=== PATIENT | female | born 1950 | race Caucasian/White ===

== ENCOUNTER → 2017-06-22 | Outpatient (CLI) | payer BC ==
[~2017-06-22] MED LIST: ADVIN25/60 INH; ALBUAER19 INH; FLUO10CA48 PO; IBUP600T44 PO; OMEP20CA9 PO; OXYC-57 PO; PRED10TA PO; [UNRECOGNIZED DRUG - OTHER] PO
--- NOTE | 2017-06-26 12:39 | MAMMOGRAPHY REPORT ---
BILATERAL DIGITAL SCREENING MAMMOGRAM TOMOSYNTHESIS WITH CAD: 06/22/2017 CLINICAL HISTORY: Routine screening. Patient has no complaints. TECHNIQUE: Breast tomosynthesis in addition to standard 2D mammography was performed. Current study was also evaluated with a Computer Aided Detection (CAD) system. COMPARISON: Comparison is made to exams dated: 06/14/2016 mammogram, 06/09/2015 mammogram, 06/08/2014 m ammogram, 06/05/2013 mammogram, 06/03/2012 mammogram, and 05/10/2011 mammogram - [facility] enter. BREAST COMPOSITION: There are scattered areas of fibroglandular density in both breasts. FINDINGS: No suspicious masses, calcifications, or areas of architectural distortion are noted in ei ther breast. There has been no significant interval change compared to prior exams. IMPRESSION: ACR BI-RADS CATEGORY 1: NEGATIVE There is no mammographic evidence of malignancy. A 1 year screening mammogram is recommended. The pa tient will receive written notification of the results. Approximately 10% of breast cancers are not detected with mammography. A negative mammographic report should not delay biopsy if a clinically suggestive mass is present. Izabela Vargas M.D. ah/:06/22/2017 16:48:59 Lead Investigator: Magaly LEONARD(Emile)(Cande)(BD), [facility] letter sent: Normal 1/2 BI-RADS Code: ACR BI-RADS Category 1: Negative
== END | disposition home or self-care (01) ==
LOC: C.MAMM 16:20
PROVIDERS: ATTEND Obstetrics & Gynecology
DX: Z12.31 Encounter for screening mammogram for malignant neoplasm of breast (principal)

== ENCOUNTER 2017-09-06 11:02 | Emergency (ER) | payer BC ==
[~2017-09-06] VITALS: Ht 162.6 cm; Wt 72.0 kg
[2017-09-06 11:07] VITALS: TEMP 36.7
[2017-09-06 11:33] VITALS: O2SAT 97
[2017-09-06] MEDS ORDERED: MECLIZINE HCL 25 MG TAB PO STA (11:55)
[2017-09-06 11:57] VITALS: Ht 162.6 cm; Wt 72.0 kg
[2017-09-06 12:04] LABS: BASO % 0.4 %; BASO ABS # 0.03 K/uL (0-0.2); COMPLETE YES; EOS % 2.5 %; HEMATOCRIT 39.3 % (37-47); IG% 0.1 %; LYMPH % 36.9 %; LYMPH ABS # 2.63 K/uL (1.2-3.4); MEAN CELL VOLUME 91.6 fL (80-100); MEAN CORPUSCULAR HEMOGLOBIN 30.1 pg (25-34); MEAN CORPUSCULAR HGB CONC 32.8 g/dl (32-36); MEAN PLATELET VOLUME 11.7 fL (7.4-10.4); NEUT % 53.1 %; PLATELET COUNT 285 K/uL (130-400); RED BLOOD COUNT 4.29 M/uL (4.2-5.4); WHITE BLOOD COUNT 7.12 K/uL (4.8-10.8)
--- NOTE | 2017-09-06 12:06 | EMERGENCY ROOM VISIT NOTE ---
History Report prepared by Richard: Donovan Bravo Under the Supervision of: Dr. Prashanth Spears D.O. First contact with patient: 11:48 Chief Complaint: HYPERTENSION Stated Complaint: SHELL, HIGH BLOOD PRESSURE History of Present Illness The patient is a 66 year old female who presents to the Emergency Room with complaints of dizziness that began this morning. She notes that yesterday, she felt completely at her baseline. She has been experiencing sinus congestion and post nasal drip for about a week with some laryngitis and a headache as well. She denies any ear pain or pressure. She began having ringing in her ears upon arrival to the ER. She denies any chest pain, shortness of breath, nausea, vomiting, or abdominal pain. She has not taken any medications since 7 days ago which was Mucinex. This spell of dizziness has never happened to the patient before. She denies any history of hypertension, hyperlipidemia, diabetes, or strokes. She is currently on Omeprazole and Zoloft. She has a current history of a hiatal hernia. Source of History: patient Onset: this morning Position: other (Global) Symptom Intensity: moderate Quality: other (Dizziness) Timing: constant Associated Symptoms: + headache, No chest pain, No SOB, No nausea, No vomiting, No abdominal pain Note: She is experiencing sinus congestion and post nasal drip. Review of Systems See HPI for pertinent positives & negatives. A total of 10 systems reviewed and were otherwise negative. Past Medical & Surgical Medical Problems: (1) GERD (gastroesophageal reflux disease) Family History Omitted secondary to the patient's age. Social History Smoking Status: Former Smoker Smokeless Tobacco Use: No Alcohol Use: occasionally Drug Use: none Marital Status: Housing Status: lives with family Occupation Status: employed Current/Historical Medications Scheduled Omeprazole (Prilosec), 20 MG PO DAILY Sertraline (Zoloft), 1 TAB PO DAILY Allergies Coded Allergies: Tyramine (Verified Allergy, Unknown, HIVES, 05/08/16) Physical Exam Vital Signs Date Time Temp Pulse Resp B/P (MAP) Pulse Ox O2 Delivery O2 Flow Rate FiO2 09/06/17 13:29 78 148/89 98 Room Air 09/06/17 11:40 71 16 145/95 95 Room Air 09/06/17 11:34 76 09/06/17 11:33 97 Room Air 11/16/17 11:07 36.7 85 16 164/103 98 Room Air Physical Exam GENERAL: Patient is awake, alert, and in no acute distress. Patient is resting comfortably and showing no signs of anxiety EYES: The conjunctivae are clear. The pupils are round and reactive. No nystagmus. EARS, NOSE, MOUTH AND THROAT: TM's clear bilaterally. The nose is without any evidence of any deformity. Mucous membranes are moist tongue is midline NECK: The neck is nontender and supple. RESPIRATORY: Normal respiratory effort is noted there is no evidence of wheezing rhonchi or rales CARDIOVASCULAR: Regular rate and rhythm noted there no murmurs rubs or gallops normal S1 normal S2 GASTROINTESTINAL: The abdomen is soft. Bowel sounds are present in all quadrants. Abdomen is nontender MUSCULOSKELETAL/EXTREMITIES: There is no evidence of gross deformity full range of motion is noted in the hips and shoulders SKIN: There is no obvious evidence of any rash. There are no petechiae, pallor or cyanosis noted. NEUROLOGIC: Patient is awake alert and oriented x3 strength is symmetric patellar reflexes are 2+ bilaterally Medical Decision & Procedures ER Provider Diagnostic Interpretation: Radiology results as stated below per my review and radiologist interpretation: CT HEAD WITHOUT CONTRAST (CT) CLINICAL HISTORY: Dizziness. Altered mental status. Hypertension. Headache. COMPARISON STUDY: No previous studies for comparison. TECHNIQUE: Axial CT of the brain is performed from the vertex to the skull base. IV contrast was not administered for this examination. A dose lowering technique was utilized adhering to the principles of ALARA. CT DOSE: 537.48 mGy.cm FINDINGS: No intra or extra-axial mass lesions are visualized. There is no CT evidence of acute cortical infarction. There is no evidence of midline shift. There is no acute hemorrhage. No calvarial fractures are visualized. There are mild white matter hypodensities likely on a small vessel basis. There is no evidence of pathologic ventricular dilatation. There is no evidence of acute sinusitis IMPRESSION: No acute intracranial findings Electronically signed by: Imer Noe M.D. 09/06/2017 12:27 PM Dictated Date/Time: 09/06/2017 12:26 PM CHEST ONE VIEW PORTABLE CLINICAL HISTORY: Altered mental status. Weakness. Hypertension. COMPARISON STUDY: 10/06/2010 FINDINGS: The cardiac and mediastinal contours are normal. There is no evidence of focal pulmonary consolidation. There is no evidence of failure. No pleural effusions are visualized.[Slightly prominent basilar markings is likely secondary to mild atelectatic change. IMPRESSION: No active disease in the chest. Electronically signed by: Imer Noe M.D. 09/06/2017 12:12 PM Dictated Date/Time: 09/06/2017 12:10 PM Laboratory Results 09/06/17 11:25 Red Blood Count 4.29, Mean Corpuscular Volume 91.6, Mean Corpuscular Hemoglobin 30.1, Mean Corpuscular Hemoglobin Concent 32.8, Mean Platelet Volume 11.7, Neutrophils (%) (Auto) 53.1, Lymphocytes (%) (Auto) 36.9, Monocytes (%) (Auto) 7.0, Eosinophils (%) (Auto) 2.5, Basophils (%) (Auto) 0.4, Neutrophils # (Auto) 3.77, Lymphocytes # (Auto) 2.63, Monocytes # (Auto) 0.50, Eosinophils # (Auto) 0.18, Basophils # (Auto) 0.03 09/06/17 11:25 Test 09/06/17 11:25 09/06/17 13:00 White Blood Count 7.12 K/uL (4.8-10.8) Red Blood Count 4.29 M/uL (4.2-5.4) Hemoglobin 12.9 g/dL (12.0-16.0) Hematocrit 39.3 % (37-47) Mean Corpuscular Volume 91.6 fL (80-100) Mean Corpuscular Hemoglobin 30.1 pg (25-34) Mean Corpuscular Hemoglobin Concent 32.8 g/dl (32-36) Platelet Count 285 K/uL (130-400) Mean Platelet Volume 11.7 fL (7.4-10.4) Neutrophils (%) (Auto) 53.1 % Lymphocytes (%) (Auto) 36.9 % Monocytes (%) (Auto) 7.0 % Eosinophils (%) (Auto) 2.5 % Basophils (%) (Auto) 0.4 % Neutrophils # (Auto) 3.77 K/uL (1.4-6.5) Lymphocytes # (Auto) 2.63 K/uL (1.2-3.4) Monocytes # (Auto) 0.50 K/uL (0.11-0.59) Eosinophils # (Auto) 0.18 K/uL (0-0.5) Basophils # (Auto) 0.03 K/uL (0-0.2) RDW Standard Deviation 48.0 fL (36.4-46.3) RDW Coefficient of Variation 14.3 % (11.5-14.5) Immature Granulocyte % (Auto) 0.1 % Immature Granulocyte # (Auto) 0.01 K/uL (0.00-0.02) Prothrombin Time 10.0 SECONDS (9.0-12.0) Prothromb Time International Ratio 0.9 (0.9-1.1) Activated Partial Thromboplast Time 28.2 SECONDS (21.0-31.0) Partial Thromboplastin Ratio 1.1 Anion Gap 8.0 mmol/L (3-11) Est Creatinine Clear Calc Drug Dose 74.7 ml/min Estimated GFR () 99.2 Estimated GFR (Non- 85.6 BUN/Creatinine Ratio 14.9 (10-20) Calcium Level 9.1 mg/dl (8.5-10.1) Magnesium Level 2.3 mg/dl (1.8-2.4) Total Bilirubin 0.3 mg/dl (0.2-1) Direct Bilirubin < 0.1 mg/dl (0-0.2) Aspartate Amino Transf (AST/SGOT) 27 U/L (15-37) Alanine Aminotransferase (ALT/SGPT) 28 U/L (12-78) Alkaline Phosphatase 82 U/L (45-117) Troponin I < 0.015 ng/ml (0-0.045) Total Protein 8.0 gm/dl (6.4-8.2) Albumin 4.2 gm/dl (3.4-5.0) Thyroid Stimulating Hormone (TSH) 1.050 uIu/ml (0.300-4.500) Urine Color YELLOW Urine Appearance CLEAR (CLEAR) Urine pH 8.5 (4.5-7.5) Urine Specific [place] 1.011 (1.000-1.030) Urine Protein NEG (NEG) Urine Glucose (UA) NEG (NEG) Urine Ketones NEG (NEG) Urine Occult Blood NEG (NEG) Urine Nitrite NEG (NEG) Urine Bilirubin NEG (NEG) Urine Urobilinogen NEG (NEG) Urine Leukocyte Esterase TRACE (NEG) Urine WBC (Auto) 0 /hpf (0-5) Urine RBC (Auto) 0-4 /hpf (0-4) Urine Hyaline Casts (Auto) 0 /lpf (0-5) Urine Epithelial Cells (Auto) 10-20 /lpf (0-5) Urine Bacteria (Auto) NEG (NEG) Laboratory results per my review. Medications Administered Medications (Trade) Dose Ordered Sig/Harrison Route Start Time Stop Time Status Last Admin Dose Admin Meclizine HCl (Antivert Tab) 25 mg NOW STAT PO 09/06/17 11:55 09/06/17 11:56 DC 09/06/17 12:16 25 MG ECG Indication: other (HTN) Rate (beats per minute): 71 Rhythm: normal sinus Findings: no ectopy, other (No STS abnormalities) Comparison ECG Date: 09/02/12 Change: no significant change ED Course 1148: The patient was evaluated in room A3. A complete history and physical examination were performed. 1155: Antivert Tab 25 mg PO 1345: Upon reevaluation, the patient is resting. I discussed the results and treatment plan with her. She verbalized agreement of the treatment plan. She was discharged home. Medical Decision Differential diagnosis: Etiologies such as benign positional vertigo, dehydration, hypovolemia, anemia, tumor, infection, hypoglycemia, electrolyte abnormalities, cardiac sources, intracerebral event, toxicologic, neurologic, as well as others were entertained. The patient is a 66-year-old female who presented to the emergency apartment with her significant other for an evaluation of vertigo. The patient was also found have elevated blood pressure on multiple occasions while she was in the emergency department. The patient did not have any focal neurologic deficit. I discussed the patient's laboratory and radiographic studies with her as well as her significant other. The patient was treated with Antivert in the emergency department but I do not feel that it improved her symptoms significantly. She was encouraged to rest and avoid any strenuous activity. She was also encouraged to return to the emergency Department immediately if other symptoms consistent with a stroke develop or worsening of her current symptoms. She's also encouraged to discuss the possibility that she may require further studies such as an MRI the brain or a referral to an ear nose and throat physician as well as blood pressure treatment when she follows up with her primary care physician. Medication Reconcilliation Current Medication List: was personally reviewed by me Blood Pressure Screening Patient's blood pressure: Elevated blood pressure Blood pressure disposition: Referred to PCP Impression Primary Impression: Vertigo Scribe Attestation The scribe's documentation has been prepared under my direction and personally reviewed by me in its entirety. I confirm that the note above accurately reflects all work, treatment, procedures, and medical decision making performed by me. Departure Information Dispostion Home / Self-Care Referrals No Doctor, Assigned (PCP) Forms HOME CARE DOCUMENTATION FORM, IMPORTANT VISIT INFORMATION, WORK / SCHOOL INSTRUCTIONS, Work Instructions Patient Instructions ED Hypertension Poss, ED Vertigo Unspecified, My [facility] Additional Instructions Call your family doctor to schedule a follow up appointment
--- NOTE | 2017-09-06 12:13 | DIAGNOSTIC IMAGING REPORT ---
CHEST ONE VIEW PORTABLE CLINICAL HISTORY: Altered mental status. Weakness. Hypertension. COMPARISON STUDY: 10/06/2010 FINDINGS: The cardiac and mediastinal contours are normal. There is no evidence of focal pulmonary consolidation. There is no evidence of failure. No pleural effusions are visualized.[Slightly prominent basilar markings is likely secondary to mild atelectatic change. IMPRESSION: No active disease in the chest. Electronically signed by: Imer Noe M.D. 09/06/2017 12:12 PM Dictated Date/Time: 09/06/2017 12:10 PM
[2017-09-06 12:17] LABS: INR 0.9 (0.9-1.1); PARTIAL THROMBOPLASTIN RATIO 1.1
[2017-09-06 12:20] LABS: ALT/SGPT 28 U/L (12-78); AST/SGOT 27 U/L (15-37); BLOOD UREA NITROGEN 11 mg/dl (7-18); BUN/CREATININE RATIO 14.9 (10-20); CALCIUM 9.1 mg/dl (8.5-10.1); CARBON DIOXIDE 28 mmol/L (21-32); CHLORIDE 103 mmol/L (98-107); CREATININE 0.74 mg/dl (0.60-1.20); GLUCOSE 86 mg/dl (70-99); MAGNESIUM 2.3 mg/dl (1.8-2.4); POTASSIUM 3.7 mmol/L (3.5-5.1); SODIUM 139 mmol/L (136-145)
--- NOTE | 2017-09-06 12:29 | DIAGNOSTIC IMAGING REPORT ---
CT HEAD WITHOUT CONTRAST (CT) CLINICAL HISTORY: Dizziness. Altered mental status. Hypertension. Headache. COMPARISON STUDY: No previous studies for comparison. TECHNIQUE: Axial CT of the brain is performed from the vertex to the skull base. IV contrast was not administered for this examination. A dose lowering technique was utilized adhering to the principles of ALARA. CT DOSE: 537.48 mGy.cm FINDINGS: No intra or extra-axial mass lesions are visualized. There is no CT evidence of acute cortical infarction. There is no evidence of midline shift. There is no acute hemorrhage. No calvarial fractures are visualized. There are mild white matter hypodensities likely on a small vessel basis. There is no evidence of pathologic ventricular dilatation. There is no evidence of acute sinusitis IMPRESSION: No acute intracranial findings Electronically signed by: Imer Noe M.D. 09/06/2017 12:27 PM Dictated Date/Time: 09/06/2017 12:26 PM
[2017-09-06 12:31] LABS: ALKALINE PHOSPHATASE 82 U/L (45-117)
[2017-09-06] MEDS ORDERED: OMEP20CA9 PO (12:43)
[2017-09-06] MEDS ORDERED: SERT50TA PO (12:43)
[2017-09-06 13:12] LABS: URINE APPEARANCE CLEAR (CLEAR); URINE BILIRUBIN NEG (NEG); URINE COLOR YELLOW; URINE NITRITE NEG (NEG); URINE PH 8.5 (4.5-7.5); URINE SPECIFIC GRAVITY 1.011 (1.000-1.030); UROBILINOGEN NEG (NEG)
[2017-09-06 13:16] LABS: MANUAL MICROSCOPIC REQUIRED? NO; REVIEW REQ? NO
[2017-09-06 13:29] VITALS: BP 148/89; PULSE 78; O2SAT 98
== END 2017-09-06 14:02 | disposition home or self-care (01) ==
LOC: C.EDB 11:03 → C.EDA 14:02
DX: R42 Dizziness and giddiness (principal); K21.9 Gastro-esophageal reflux disease without esophagitis; Z87.891 Personal history of nicotine dependence; Z79.899 Other long term (current) drug therapy

== ENCOUNTER 2017-10-28 09:18 | Emergency (ER) | payer BC ==
[~2017-10-28 09:18] MED LIST changes: -ADVIN25/60 INH; -ALBUAER19 INH; -FLUO10CA48 PO; -IBUP600T44 PO; -OXYC-57 PO; -PRED10TA PO; +SERT50TA PO; -[UNRECOGNIZED DRUG - OTHER] PO
[2017-10-28 09:20] VITALS: TEMP 36.5; Ht 162.6 cm
[2017-10-28] MEDS ORDERED: IBUPROFEN 600 MG TAB PO STA (09:41)
--- NOTE | 2017-10-28 09:59 | DIAGNOSTIC IMAGING REPORT ---
R KNEE 3 VIEWS CLINICAL HISTORY: Right knee pain. COMPARISON: None FINDINGS: There is mild lateral patellar tilt. No acute fracture or suspicious lesion is identified. There is a large right knee joint effusion. There is mild osteophytosis of the right knee. IMPRESSION: 1. No acute fracture. 2. Large right knee joint effusion. 3. Mild to moderate osteoarthritis of the right knee. Electronically signed by: Ureil Cason M.D. 10/28/2017 9:58 AM Dictated Date/Time: 10/28/2017 9:55 AM
[2017-10-28] MEDS ORDERED: PRMVC PV (10:02)
[2017-10-28] MEDS ORDERED: ERGO500037 PO (10:02)
[2017-10-28] MEDS ORDERED: ADVIN10/60 INH (10:02)
[2017-10-28] MEDS ORDERED: OXYC1TAB3 PO (10:16)
--- NOTE | 2017-10-28 10:17 | EMERGENCY ROOM VISIT NOTE ---
ED Visit Note First contact with patient: 09:24 CHIEF COMPLAINT: Right knee pain 4 days HISTORY OF PRESENT ILLNESS: Patient is a 66-year-old white female who presents emergency department for evaluation of right knee pain. Her symptoms started about 4 days ago. She states describes getting a sharp, stabbing pain in the knee with ambulation twice on Sunday, then again twice on Sunday. She states that it catches her when it occurs and is very painful. The following day, she woke with more constant knee pain and applied heat which made the pain worse. Yesterday, she states that she essentially laid around all day, elevating the leg with ice on it. She did have a neoprene sleeve brace that she put on the knee which helped slightly. Left knee when she tried to go up the stairs to go to bed, she had severe pain to the point that she vomited. She had taken Excedrin Migraine, and used oxycodone that she had left over from an old compression fracture, stating that the oxycodone did help slightly. She presently rates her pain a 4/10 but last evening when it was severe she would' ve rated it a 10/10. She denies any prior history of injuries or trauma to this knee, and cannot relate anything that would've caused her pain that occurred prior to the onset of her symptoms. REVIEW OF SYSTEMS: Review of systems as per HPI. All other systems reviewed were negative. At least 6 systems reviewed. PMH: Electronic medical records are reviewed and summarized as above/below. See Problem List. SOCIAL HISTORY: Patient lives at home with her spouse. Employed as a teacher. She does not smoke. PHYSICAL EXAM: Vital Signs: Reviewed Nurse's notes. MENTAL STATUS: Patient is a pleasant, well-appearing 66-year-old white female who is awake and alert and in no acute distress, laying on the gurney with her at the bedside. MUSCULOSKELETAL: Examination of the right knee show no significant soft tissue swelling and a moderate, easily palpable intra- articular effusion. There is no erythema, increased warmth or cellulitic changes. She is mild medial joint line tenderness, no pain laterally, no peripatellar tenderness or crepitus. She can extend fully flex greater than 90 without difficulty, limited by soft tissue swelling. There is no gross ligamentous instability appreciated. The calf is soft and nontender. The right lower extremity is neurovascularly intact. EMERGENCY DEPARTMENT COURSE: The patient was seen and evaluated as above. Records were reviewed. The patient was medicated with ibuprofen and right knee x-rays were obtained. Findings are as noted below. Possibility of meniscal or ligamentous injury was discussed with the patient. Her presentation does not appear consistent with a gouty arthropathy. Certainly no evidence for a septic joint. The patient was wrapped with an Singh wrap, she has crutches and a cane at home, she has a neoprene sleeve and a brace that she can use. She would like to follow up with [facility] for further care and evaluation. She was encouraged to use an anti-inflammatory medicine such as Aleve or ibuprofen, and was given a small prescription for oxycodone to use as needed for severe pain. The patient was discharged home with her in good condition. Medication reconciliation: I attest that I have personally reviewed the patient' s current medication list. Blood pressure screening: Patient was found to have a slightly elevated blood pressure due to circumstances. I do not believe that the patient requires hypertension monitoring. Patient was reviewed in the [facility] Prescription Drug Monitoring Program, and there no documented record. R KNEE 3 VIEWS CLINICAL HISTORY: Right knee pain. COMPARISON: None FINDINGS: There is mild lateral patellar tilt. No acute fracture or suspicious lesion is identified. There is a large right knee joint effusion. There is mild osteophytosis of the right knee. IMPRESSION: 1. No acute fracture. 2. Large right knee joint effusion. 3. Mild to moderate osteoarthritis of the right knee. Problem List Medical Problems: (1) Compression fx, thoracic spine Status: Resolved (2) GERD (gastroesophageal reflux disease) Status: Chronic (3) Vertigo Status: Resolved Current/Historical Medications Scheduled Ergocalciferol (Vitamin D 22767 Unit), 50,000 UNIT PO WK Estrogens, Conjugated (Premarin), 0.625 MG PV 2XWK Fluticasone Prop/Salmeterol (Advair Diskus 100/50 60 Dose), 1 PUFF INH BID Omeprazole (Prilosec), 20 MG PO DAILY Scheduled PRN Oxycodone Immediate Rel Tab (Roxicodone Ir), 1-2 TAB PO Q4H PRN for Severe Pain Allergies Coded Allergies: Tyramine (Verified Allergy, Unknown, HIVES, 10/28/17) Vital Signs Date Time Temp Pulse Resp B/P (MAP) Pulse Ox O2 Delivery O2 Flow Rate FiO2 10/28/17 10:23 76 18 138/84 96 10/28/17 09:20 36.5 94 20 146/85 97 Room Air Medications Administered Medications (Trade) Dose Ordered Sig/Harrison Route Start Time Stop Time Status Last Admin Dose Admin Ibuprofen (Motrin Tab) 600 mg NOW STAT PO 10/28/17 09:41 10/28/17 09:42 DC 10/28/17 09:41 600 MG Departure Information Impression Primary Impression: Right knee pain Additional Impression: Effusion, right knee Prescriptions Oxycodone Immediate Rel Tab (ROXICODONE IR) 5 Mg Tab 1-2 TAB PO Q4H Y for Severe Pain, #25 TAB For Initial Treatment Prov: Alondra Manuel PA 10/28/17 Referrals Valorie Scales M.D. (PCP) Huan Moreira M.D. Patient Instructions [facility] Additional Instructions Oxycodone (OxyIR) 5mg: Take 1-2 pills every four hours for breakthrough pain. Avoid alcohol, operating machinery or dangerous equipment, working on ladders or roofs, DRIVING, or situations where being under the influence may be dangerous. It is recommended to use an [id number] stool softener such as Colace, 100mg twice daily while taking this medication to avoid constipation. Ibuprofen(Motrin, Advil) may be used for fever or pain. Use 600mg every six hours as needed. Take with food. Avoid using more than 2400mg in a 24 hour period. Do not use 2400mg per day for more than three consecutive days without physician direction. Prolonged inappropriate use can lead to stomach upset or ulcers. This medication can be taken if you need to drive, work, or perform activities which may be dangerous when taking narcotic pain medication. (AND/OR) Acetaminophen(Tylenol) may be used for fever or pain. Use 1000mg every six hours as needed. Avoid using more than 3000mg in a 24 hour period. This medication can be taken if you need to drive, work, or perform activities which may be dangerous when taking narcotic pain medication. Ice compresses for 20 minutes at a time four times daily for 2-3 days. Use the SINGH wrap or brace with cane if needed. Rest and elevate your injury. Continue current medications. Return to the ER immediately for any numbness, tingling, severe pain, extreme swelling in the extremity or as needed. Call [facility] tomorrow to arrange follow up for your injury. Problem Qualifiers
[2017-10-28 10:23] VITALS: BP 138/84; PULSE 76; O2SAT 96
== END 2017-10-28 10:25 | disposition home or self-care (01) ==
LOC: C.EDB 09:20 → C.EDA 10:25
DX: M25.561 Pain in right knee (principal); M25.461 Effusion, right knee; K21.9 Gastro-esophageal reflux disease without esophagitis; Z79.899 Other long term (current) drug therapy